=== PATIENT | female | born 1970 | race African-American/Black ===

== ENCOUNTER 2025-05-10 18:55 | Emergency (ER) | payer SELFPAY ==
[~2025-05-10] VITALS: Ht 160 cm; Wt 90.7 kg
[2025-05-10] MEDS ORDERED: SODIUM CHLORIDE 0.9% 1000ML 1,000 ML IV ONE (19:15)
== END 2025-05-10 19:55 | disposition left against medical advice (07) ==
LOC: FSED 19:06
DX: Z00.00 Encounter for general adult medical examination without abnormal findings (principal); E11.9 Type 2 diabetes mellitus without complications
CPT/HCPCS: 99282